=== PATIENT | female | born 1995 | race Caucasian/White ===

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

== ENCOUNTER 2018-06-19 19:35 | Emergency (ER) | payer OTHER ==
[2018-06-19 20:17] VITALS: BP 140/98
[2018-06-19 20:29] LABS: PLATELET COUNT 251 10^3/uL (150-400)
--- NOTE | 2018-06-19 21:00 | EDPHY ---
H & P Stated Complaint: SOB, Cant take deep breathes, worse when supine Time Seen by Provider: 06/19/18 19:46 HPI/ROS: CHIEF COMPLAINT: Shortness of breath HISTORY OF PRESENT ILLNESS: This is a 22-year-old female presents emergency department with a complaint of shortness of breath. Patient describes that she has had intermittent episodes of shortness of breath beginning this summer. She reports that when she would lay down she would occasionally feel a discomfort at the base of her throat and a sensation of not being able to get a deep breath or feeling like she needed to yawn. This was better when she was standing. These symptoms have been intermittent and progressively worsening throughout the fall. Over the last 3 weeks her episodes have become more severe and patient reports that when she goes outside she feels short of breath as well as when she lays down flat. She was seen by primary care physician yesterday who started her on a albuterol meter dose inhaler. She used it last night and again today 3 times. She presents this evening with significant shortness of breath, tachycardia, discomfort at the base of her throat. She reports that tonight was the 1st time that she had felt like her heart was racing in conjunction with her shortness of breath. Patient denies any fever, chills, cough, runny nose. She denies a history of reactive airways disease. No history of vomiting or diarrhea. No urinary complaints. No syncope, no significant chest pain. No dyspnea on exertion. No rash. REVIEW OF SYSTEMS: A comprehensive 10 system review of systems was reviewed and is otherwise negative aside from elements mentioned in the history of present illness and medical decision making. PAST MEDICAL HISTORY: Patient denies. SOCIAL HISTORY: Patient was in [place] and [place] over the summer but otherwise has had no travel. Nonsmoker, occasionally uses marijuana, on control pills. Denies illicit drug use. VITAL SIGNS Reviewed by me. 125, 126/99. GENERAL: Well-developed, well-nourished, visible tachypneic, tachycardic, seems somewhat anxious. Voice sounds hoarse. HEENT: Atraumatic. Eyes: No icterus, no injection. Mouth: moist mucous membranes. No erythema or lesions. Neck: supple with no adenopathy. LUNGS: Clear to auscultation bilaterally, no wheezes, rhonchi or rales. No stridor. CARDIAC: Tachycardic rate, regular, no rubs murmurs or gallops auscultated. ABDOMEN: Soft, nontender, nondistended, bowel sounds normal. BACK: No CVA tenderness. EXTREMITIES: No trauma. No edema. Range of motion is normal throughout. NEURO: Alert and oriented, grossly nonfocal. SKIN: Warm and dry, no rash. PSYCHIATRIC: Normal mentation, no agitation. - Personal History LMP (Females 10-55): Now Current Tetanus Diphtheria and Acellular Pertussis (TDAP): Yes - Medical/Surgical History Hx Asthma: No Hx Chronic Respiratory Disease: No Hx Diabetes: No Hx Cardiac Disease: No Hx Renal Disease: No Hx Cirrhosis: No Hx Alcoholism: No Hx HIV/AIDS: No Hx Splenectomy or Spleen Trauma: No Other PMH: Denies - Social History Smoking Status: Never smoked Constitutional: Initial Vital Signs Temperature (C) 36.5 C 06/19/18 19:38 Heart Rate 125 H 06/19/18 19:38 Respiratory Rate 20 06/19/18 19:38 Blood Pressure 126/99 H 06/19/18 19:38 O2 Sat (%) 97 06/19/18 19:38 O2 Delivery Mode Room Air Allergies/Adverse Reactions: Penicillins Allergy (Mild, Verified 06/19/18 19:37) rash as child Home Medications: Medication Instructions Recorded Control Pill 10/02/16 Albuterol 06/19/18 Medical Decision Making - Diagnostics EKG Interpretation: 12-LEAD EKG: Please see the full report in [facility]. My interpretation: Sinus tachycardia Imaging Results: Imaging Impressions Chest X-Ray 06/19/18 20:01 Impression: Normal chest. Imaging: I viewed and interpreted images myself ED Course/Re-evaluation: 22-year-old female presenting to the emergency department tachycardic in complaining of shortness of breath. Her symptoms have been intermittent and gradually worsening since the summer. She reports that her shortness of breath is worse when she lays flat or goes outside into the cool air. She used an albuterol inhaler for the 1st time yesterday as well as 3 times today. Evaluation emergency department included a chest x-ray which showed clear lungs , D-dimer which was negative, troponin which was negative, TSH was normal, electrolytes which were normal. EKG was sinus tachycardia but no ischemic changes. Throughout her emergency department evaluation the patient's symptoms improved, and her heart rate trended downward. Bedside ultrasound was performed by myself to evaluate for pericardial tamponade. This was negative for pericardial fluid. Long discussion was held with the patient as well as her family. We discussed causes of dyspnea and etiologies which have been rule out. We discussed the possibility of pulmonary source such as reactive airways disease or asthma. We discussed the possibility of acid reflux. We also discussed the role of anxiety. Patient was discharged with instructions to begin taking course of omeprazole, avoid using her albuterol inhaler for the next several days to see if her symptoms improved, to follow up with the primary care physician on Friday, and to use a small dose of Ativan if needed. Differential Diagnosis: Differential diagnosis for the patient's shortness of breath was considered including but not limited to pulmonary infectious processes, airways disease, asthma exacerbation, myocarditis, pulmonary emboli, pulmonary edema, congestive heart failure, and cardiac causes. - Data Points Laboratory Results: Laboratory Results 06/19/18 20:15 06/19/18 20:15 06/19/18 06/19/18 06/19/18 20:19 20:15 20:15 WBC RBC Hgb Hct MCV MCH MCHC RDW Plt Count MPV Neut % (Auto) Lymph % (Auto) [place] % (Auto) Eos % (Auto) Baso % (Auto) Nucleat RBC Rel Count Absolute Neuts (auto) Absolute Lymphs (auto) Absolute Monos (auto) Absolute Eos (auto) Absolute Basos (auto) Absolute Nucleated RBC Immature Gran % Immature Gran # D-Dimer < 0.27 ug/mLFEU ug/mLFEU (0.00-0.50) Sodium Potassium Chloride Carbon Dioxide Anion Gap BUN Creatinine Estimated GFR Glucose Calcium Total Bilirubin Conjugated Bilirubin Unconjugated Bilirubin AST ALT Alkaline Phosphatase POC Troponin I 0.00 ng/mL ng/mL (0.00-0.08) NT-Pro-B Natriuret Pep Total Protein Albumin Lipase TSH Beta HCG, Qual NEGATIVE 06/19/18 06/19/18 20:15 20:15 WBC 5.34 10^3/uL 10^3/uL (3.80-9.50) RBC 5.07 10^6/uL 10^6/uL (4.18-5.33) Hgb 15.3 g/dL g/dL (12.6-16.3) Hct 44.6 % % (38.0-47.0) MCV 88.0 fL fL (81.5-99.8) MCH 30.2 pg pg (27.9-34.1) MCHC 34.3 g/dL g/dL (32.4-36.7) RDW 13.3 % % (11.5-15.2) Plt Count 251 10^3/uL 10^3/uL (150-400) MPV 10.9 fL fL (8.7-11.7) Neut % (Auto) 53.8 % % (39.3-74.2) Lymph % (Auto) 34.5 % % (15.0-45.0) [place] % (Auto) 10.1 % % (4.5-13.0) Eos % (Auto) 0.7 % % (0.6-7.6) Baso % (Auto) 0.7 % % (0.3-1.7) Nucleat RBC Rel Count 0.0 % % (0.0-0.2) Absolute Neuts (auto) 2.87 10^3/uL 10^3/uL (1.70-6.50) Absolute Lymphs (auto) 1.84 10^3/uL 10^3/uL (1.00-3.00) Absolute Monos (auto) 0.54 10^3/uL 10^3/uL (0.30-0.80) Absolute Eos (auto) 0.04 10^3/uL 10^3/uL (0.03-0.40) Absolute Basos (auto) 0.04 10^3/uL 10^3/uL (0.02-0.10) Absolute Nucleated RBC 0.00 10^3/uL 10^3/uL (0-0.01) Immature Gran % 0.2 % % (0.0-1.1) Immature Gran # 0.01 10^3/uL 10^3/uL (0.00-0.10) D-Dimer Sodium 137 mEq/L mEq/L (135-145) Potassium 3.5 mEq/L mEq/L (3.5-5.2) Chloride 106 mEq/L mEq/L (97-110) Carbon Dioxide 19 mEq/l L mEq/l (22-31) Anion Gap 12 mEq/L mEq/L (6-14) BUN 16 mg/dL mg/dL (7-23) Creatinine 0.8 mg/dL mg/dL (0.6-1.0) Estimated GFR > 60 Glucose 112 mg/dL H mg/dL (70-100) Calcium 9.7 mg/dL mg/dL (8.5-10.4) Total Bilirubin 0.8 mg/dL mg/dL (0.1-1.4) Conjugated Bilirubin 0.2 mg/dL mg/dL (0.0-0.5) Unconjugated Bilirubin 0.6 mg/dL mg/dL (0.0-1.1) AST 18 IU/L IU/L (14-46) ALT 13 IU/L IU/L (9-52) Alkaline Phosphatase 44 IU/L IU/L (38-126) POC Troponin I NT-Pro-B Natriuret Pep 34 pg/mL pg/mL (0-125) Total Protein 7.6 g/dL g/dL (6.3-8.2) Albumin 4.5 g/dL g/dL (3.5-5.0) Lipase 98 IU/L IU/L (23-300) TSH 0.845 uIU/mL uIU/mL (0.465-4.680) Beta HCG, Qual Medications Given: Discontinued Medications Lorazepam (Ativan 1 Mg Prepack#4) 1 btl TAKEHOME EDNOW ONE Stop: 06/19/18 21:30 Last Admin: 06/19/18 21:35 Dose: 1 btl Pantoprazole Sodium (Protonix) 40 mg PO EDNOW ONE Stop: 06/19/18 21:21 Last Admin: 06/19/18 21:25 Dose: 40 mg Point of Care Test Results: Chemistry 06/19/18 20:19 POC Troponin I 0.00 ng/mL ng/mL (0.00-0.08) Departure - Departure Disposition: Home, Routine, Self-Care Clinical Impression: Tachycardia Dyspnea Qualifiers: Dyspnea type: shortness of breath Qualified Code(s): R06.02 - Shortness of breath Condition: Good Instructions: Lorazepam (By mouth), Dyspnea (ED), Shortness of Breath (ED) Additional Instructions: No clear cause your shortness of breath has been identified. There is no evidence of a heart attack, blood clot in your lungs, pneumonia, electrolyte abnormalities, heart failure, collapsed lung, fluid in the lung, or fluid around her heart. I recommend that you obtain pulmonary function tests as well as consider whether reflux or heartburn is causing some of your symptoms. Please discuss this with her primary care physician. I would suggest that you take omeprazole, which is available [id number], for the next 14 days. Since the albuterol inhaler does contain an adrenaline like medication, consider discontinuing the use until you are seen again. You been given a prepack of Ativan. You may use this if needed for your symptoms. This will help treat any adrenaline surges that are occurring from either anxiety or from your symptoms. Will also make you sleepy. Her dose is 1 /2 tablet up to 2 times a day for anxiety. A screening test for thyroid issues is still pending. This will be available later. Please have your primary care physician follow-up. Referrals: Marsha Qureshi MD [Primary Care Provider] - As per Instructions
[2018-06-19] MEDS ORDERED: PANTOPRAZOLE SODIUM 40 MG TAB PO ONE (21:20)
[2018-06-19] MEDS ORDERED: HYDROCOD/APAP 5/325 PREPACK#6 BTL TAKEHOME ONE (21:28)
[2018-06-19] MEDS ORDERED: LORAZEPAM 1 MG PREPACK#4 BTL TAKEHOME ONE (21:29)
--- NOTE | 2018-06-20 22:49 | CPEKG ---
Test Reason : OPEN Blood Pressure : / mmHG Vent. Rate : 110 BPM Atrial Rate : 110 BPM P-R Int : 128 ms QRS Dur : 091 ms QT Int : 330 ms P-R-T Axes : 048 083 -41 degrees QTc Int : 447 ms Sinus tachycardia Confirmed by Kayley Francis ([id number]) on 06/20/2018 10:48:46 PM Referred By: Kayley Francis Confirmed By:Kayley Francis
--- NOTE | 2018-06-23 14:51 | CPEKG ---
Test Reason : OPEN Blood Pressure : / mmHG Vent. Rate : 110 BPM Atrial Rate : 110 BPM P-R Int : 128 ms QRS Dur : 091 ms QT Int : 330 ms P-R-T Axes : 048 083 -41 degrees QTc Int : 447 ms Sinus tachycardia Inferolateral ST/T wave changes noted Confirmed by Donald Rodriguez [id number] on 06/23/2018 2:51:15 PM Referred By: Kayley Francis Confirmed By:Donald Rodriguez
== END 2018-06-19 21:40 | disposition home or self-care (01) ==
DX: R00.0 Tachycardia, unspecified (principal); R06.02 Shortness of breath
CPT/HCPCS: 84484-ER